=== PATIENT | female | born 1990 | race Caucasian/White ===

== ENCOUNTER 2021-07-28 14:09 | Emergency (ER) | payer MEDICAID ==
[2021-07-28] MEDS ORDERED: Sodium Chloride 0.9% 10 ML Syringe FLUSH PRN (15:42)
--- NOTE | 2021-07-28 15:57 | EDM.PDOC ---
ED HPI GENERAL MEDICAL PROBLEM - General Chief Complaint: Abdominal Pain Stated Complaint: R SIDE ABDOMINAL PAIN/VOMITING Time Seen by Provider: 07/28/21 15:40 Source of Information: Reports: Patient, RN Notes Reviewed History Limitations: Reports: No Limitations - History of Present Illness INITIAL COMMENTS - FREE TEXT/NARRATIVE: Patient is a 31-year-old female presenting to the emergency department for evaluation of sudden onset of right lower quadrant pain with radiation into her right lower back. Reports that she was at work when the symptoms began abruptly. Describes a waxing and waning of the pain. When the pain hits she states it is a "15 out of 10" and she experiences intense nausea with this as well. States upon waking this morning, she was feeling well. Denies any obvious hematuria. She has no dysuria. She has had no fever or chills. Denies any history of kidney stones. Right Abdominal Pain Score (Numeric/FACES): 8 - Related Data Allergies Allergy/AdvReac Type Severity Reaction Status Date / Time amoxicillin [Amoxicillin] Allergy Rash Verified 07/28/21 14:26 Home Meds: Home Meds Cholecalciferol (Vitamin D3) [Vitamin D3] 2,000 units PO DAILY 07/28/21 [History] Potassium Chloride 20 mg PO BID 07/28/21 [History] Venlafaxine [Venlafaxine HCl ER] 300 mg PO DAILY 07/28/21 [History] hydroCHLOROthiazide [Hydrochlorothiazide] 12.5 mg PO DAILY 07/28/21 [History] Past Medical History HEENT History: Reports: Other (See Below) Other HEENT History: glasses Cardiovascular History: Reports: Hypertension Musculoskeletal History: Reports: Other (See Below) Other Musculoskeletal History: left knee repair Psychiatric History: Reports: Anxiety Social & Family History - Tobacco Use Tobacco Use Status *Q: Never Tobacco User Second Hand Smoke Exposure: No - Caffeine Use Caffeine Use: Reports: Soda - Recreational Drug Use Recreational Drug Use: No ED ROS GENERAL - Review of Systems Review Of Systems: Comprehensive ROS is negative, except as noted in HPI. ED EXAM, GI/ABD - Physical Exam Exam: See Below Exam Limited By: No Limitations General Appearance: Alert, WD/WN, No Apparent Distress Respiratory/Chest: No Respiratory Distress, Lungs Clear, Normal Breath Sounds, No Accessory Muscle Use, Chest Non-Tender Cardiovascular: Normal Peripheral Pulses, Regular Rate, Rhythm, No Edema, No Gallop, No JVD, No Murmur, No Rub GI/Abdominal Exam: Normal Bowel Sounds, Soft, No Organomegaly, No Distention, No Abnormal Bruit, No Mass, Pelvis Stable, Tender (RLQ) Back Exam: Normal Inspection, Full Range of Motion, CVA Tenderness (R). No: CVA Tenderness (L) Neurological: Alert, Oriented, CN II-XII Intact, Normal Cognition, Normal Gait, Normal Reflexes, No Motor/Sensory Deficits Psychiatric: Normal Affect, Normal Mood Skin Exam: Warm, Dry, Intact, Normal Color, No Rash Course - Vital Signs Last Recorded V/S: Last Vital Signs Temp 99.0 F 07/28/21 14:25 Pulse 112 H 07/28/21 14:25 Resp 18 07/28/21 14:25 BP 185/102 H 07/28/21 14:25 Pulse Ox 97 07/28/21 14:25 - Orders/Labs/Meds Labs: Laboratory Tests 07/28/21 07/28/21 07/28/21 Range/Units 16:00 16:00 17:25 WBC 13.62 H (3.98-10.04) K/mm3 RBC 4.50 (3.98-5.22) M/mm3 Hgb 12.3 (11.2-15.7) gm/dl Hct 36.8 (34.1-44.9) % MCV 81.8 (79.4-94.8) fl MCH 27.3 (25.6-32.2) pg MCHC 33.4 (32.2-35.5) g/dl RDW Std Deviation 38.9 (36.4-46.3) fL Plt Count 341 (182-369) K/mm3 MPV 9.0 L (9.4-12.3) fl Neut % (Auto) 79.1 H (34.0-71.1) % Lymph % (Auto) 13.7 L (19.3-51.7) % Schley % (Auto) 5.4 (4.7-12.5) % Eos % (Auto) 1.0 (0.7-5.8) Baso % (Auto) 0.4 (0.1-1.2) % Neut # (Auto) 10.79 H (1.56-6.13) K/mm3 Lymph # (Auto) 1.86 (1.18-3.74) K/mm3 Schley # (Auto) 0.74 H (0.24-0.36) K/mm3 Eos # (Auto) 0.13 (0.04-0.36) K/mm3 Baso # (Auto) 0.05 (0.01-0.08) K/mm3 Sodium 140 (136-145) mEq/L Potassium 3.6 (3.5-5.1) mEq/L Chloride 104 (98-107) mEq/L Carbon Dioxide 26 (21-32) mEq/L Anion Gap 13.6 (5-15) BUN 12 (7-18) mg/dL Creatinine 0.6 (0.55-1.02) mg/dL Est Cr Clr Drug Dosing 118.39 mL/min Estimated GFR (MDRD) > 60 (>60) mL/min BUN/Creatinine Ratio 20.0 H (14-18) Glucose 131 H (70-99) mg/dL Calcium 9.1 (8.5-10.1) mg/dL Total Bilirubin 0.1 L (0.2-1.0) mg/dL AST 18 (15-37) U/L ALT 27 (14-59) U/L Alkaline Phosphatase 57 (46-116) U/L C-Reactive Protein 1.5 H* (<1.0) mg/dL Total Protein 7.5 (6.4-8.2) g/dl Albumin 3.6 (3.4-5.0) g/dl Globulin 3.9 gm/dL Albumin/Globulin Ratio 0.9 L (1-2) Urine Color Yellow (Yellow) Urine Appearance Clear (Clear) Urine pH 7.0 (5.0-8.0) Ur Specific Lindsay 1.025 (1.005-1.030) Urine Protein Negative (Negative) Urine Glucose (UA) Negative (Negative) Urine Ketones Negative (Negative) Urine Occult Blood 2+ H (Negative) Urine Nitrite Negative (Negative) Urine Bilirubin Negative (Negative) Urine Urobilinogen 0.2 (0.2-1.0) Ur Leukocyte Esterase Negative (Negative) Urine RBC 10-20 H (0-5) /hpf Urine WBC 0-5 (0-5) /hpf Ur Squamous Epith Cells 5-10 H (0-5) /hpf Urine Bacteria Few (FEW) /hpf Urine Mucus Few (FEW) /hpf Meds: Medications Discontinued Medications Generic Name Dose Route Start Last Admin Trade Name Marry PRN Reason Stop Dose Admin Sodium Chloride 10 ml 07/28/21 15:42 07/28/21 16:21 Sodium Chloride 0.9% 10 Ml Syringe FLUSH 10 ml ASDIRECTED PRN Administration Keep Vein Open - Re-Assessments/Exams Free Text/Narrative Re-Assessment/Exam: Patient is a 31-year-old female presenting to the emergency department with complaints of acute onset of right lower quadrant abdominal pain with radiation to her right flank. Symptoms have improved significantly. On exam, she does have right lower quadrant abdominal tenderness as well as distinct right-sided CVA tenderness. Exam is suspicious for kidney stone. I have ordered blood work, urinalysis, and CT scan of the abdomen pelvis without contrast. Patient denies the need for pain or nausea medications at this time. 07/28/21 17:42 Hematology significant for WBC elevated at 13.62, CRP 1.5. Urinalysis shows 2+ occult blood. No evidence of infection. CT scan of the abdomen and pelvis shows a 2 mm calcification within the bladder consistent with a recently passed stone. Results discussed with patient. We will discharge her home. Discussed return precautions. Discharge instructions as documented. Departure - Departure Time of Disposition: 17:42 Disposition: Home, Self-Care 01 Condition: Good Clinical Impression: Kidney stone - Discharge Information *PRESCRIPTION DRUG MONITORING PROGRAM REVIEWED*: No *COPY OF PRESCRIPTION DRUG MONITORING REPORT IN PATIENT ALMITA: No Instructions: Kidney Stones Referrals: Kathia Saavedra ENVIRONMENTAL STUDIES DEPARTMENT CHAIR [Primary Care Provider] - Forms: ED Department Discharge Additional Instructions: You were seen in the emergency department today for evaluation of right lower quadrant pain with radiation to your back. Work-up included blood work, urinalysis, and CT scan. Results of your work-up showed that you had a 2 mm kidney stone which has passed into your bladder. Your symptoms should continue to improve as the stone is no longer within your ureter. Work-up is otherwise normal. If you should experience any new or worsening symptoms of concern, please do not hesitate to return to emergency department for reevaluation.
--- NOTE | 2021-07-29 07:35 | CT ---
CT abdomen and pelvis Technique: Multiple axial sections were obtained from above the dome of the diaphragm inferiorly through the pubic symphysis. Intravenous and oral contrast were not utilized. Study has been performed as a ureteral stone protocol. Reconstructed coronal and sagittal images were obtained. Findings: Small calcification is seen within the left side of the bladder measuring approximately 2 mm in size which most likely represents a passed ureteral calculus. Left kidney shows a small calcification measuring 5 mm compatible with nonobstructing calculus. No ureteral dilatation or ureteral stone is seen. Visualized lung bases show nothing acute. Noncontrast appearance of the liver shows no focal abnormality. Spleen size is normal. Adrenal glands show no nodules. Pancreas shows no abnormality. Gallbladder is collapsed and shows no calcified gallstones. Abdominal aorta shows no aneurysm. No retroperitoneal adenopathy or mesenteric abnormalities are seen. No pelvic mass or adenopathy is seen. Appendix is seen which is normal. Bone window settings were reviewed which show bilateral spondylitic defects at L5-S1. Mild degenerative change is noted within the spine. Impression: 1. 2 mm stone within the bladder compatible with recently passed ureteral stone. 2. Nonobstructing calculus within the left kidney. 3. Other chronic findings as described above. Diagnostic code #2 I agree with preliminary report from [facility], finalized on 07/28/21, 5:40 PM CDT, code 1
== END 2021-07-28 18:15 | disposition home or self-care (01) ==
LOC: JD.ED 14:09
DX: N20.0 Calculus of kidney (principal); I10 Essential (primary) hypertension; Z88.0 Allergy status to penicillin; Z79.899 Other long term (current) drug therapy
CPT/HCPCS: 36415; 74176; 74176-26; 80053; 81001; 85025; 86140; 99284-25

== ENCOUNTER 2025-04-27 06:06 | Day surgery (SDC) | payer BC ==
[~2025-04-27 06:06] MED LIST: Sodium Chloride 0.9% 10 ML Syringe FLUSH PRN; Sodium Chloride 0.9% 10 ML Syringe FLUSH SCH; Sodium Chloride 0.9% 100 ML ONE
[2025-04-27] MEDS ORDERED: propofoL 1,000 MG/100 ML 100 ML ONE (06:43)
[2025-04-27 06:47] LABS: BASOPHILS ABSOLUTE AUTO 0.1 K/mm3 (0.0-0.2); BASOPHILS PERCENT AUTO 0.6 % (0.0-1.0); EOSINOPHILS ABSOLUTE AUTO 0.3 K/mm3 (0.0-0.4); EOSINOPHILS PERCENT AUTO 2.5 % (0.0-6.0); HEMATOCRIT 38.9 % (37.0-47.0); HEMOGLOBIN 12.8 gm/dl (12.0-16.0); IMMATURE GRAN ABSOLUTE AUTO 0.03 K/mm3 (0.00-0.05); IMMATURE GRAN PERCENT AUTO 0.3 % (0.0-0.4); LYMPHOCYTES ABSOLUTE AUTO 2.2 K/mm3 (1.0-4.8); LYMPHOCYTES PERCENT AUTO 21.2 % (24.0-44.0); MEAN CORPUSCULAR HEMOGLOBIN 26.4 pg (28.0-32.0); MEAN CORPUSCULAR HGB CONC 32.9 g/dl (32.0-36.0); MEAN CORPUSCULAR VOLUME 80.2 fl (83.0-99.0); MEAN PLATELET VOLUME 9.1 fl (9.4-12.3); MONOCYTES ABSOLUTE AUTO 0.7 K/mm3 (0.0-0.8); MONOCYTES PERCENT AUTO 6.7 % (0.0-8.0); NEUTROPHILS ABSOLUTE AUTO 7.2 K/mm3 (1.8-7.7); NEUTROPHILS PERCENT AUTO 68.7 % (41.0-71.0); PLATELET COUNT,PLT 307 K/mm3 (150-400); RED BLOOD CELL COUNT 4.85 M/mm3 (4.10-5.30)
[2025-04-27] MEDS: Gabapentin 300 MG Cap PO SCH (06:48)
[2025-04-27] MEDS: Celecoxib 100 MG Cap PO SCH (06:49)
[2025-04-27] MEDS: Acetaminophen 325 MG Tab PO SCH (06:49)
[2025-04-27] MEDS: Lactated Ringers 1,000 ML IV SCH (06:49)
[2025-04-27] MEDS: Phenazopyridine 95 MG Tab PO SCH (06:49)
[2025-04-27] MEDS ORDERED: Rocuronium 50 MG/5 ML Vial ONE (06:58)
[2025-04-27] MEDS ORDERED: EPINEPHrine 1 MG/ML SDV ONE (06:58)
[2025-04-27] MEDS ORDERED: ceFAZolin 2 GM Vial ONE (06:58)
[2025-04-27] MEDS ORDERED: fentaNYL 250 MCG/5 ML SDV ONE (06:58)
[2025-04-27] MEDS ORDERED: Dexamethasone 4 MG/ML 5 ML MDV ONE (06:58)
[2025-04-27] MEDS ORDERED: Ketamine HCL/NACL, ISO-OSM 50 MG/5 ML Syringe ONE (06:58)
[2025-04-27] MEDS ORDERED: Midazolam 1 MG/ML 2 ML SDV ONE (06:58)
[2025-04-27] MEDS ORDERED: Lidocaine 1% 5 ML VIAL ONE (06:58)
[2025-04-27] MEDS ORDERED: dexmedeTOMIDine HCl 200 MCG/2 ML SDV ONE (06:58)
[2025-04-27] MEDS ORDERED: Glycopyrrolate 0.2 MG/ML 2 ML SDV ONE (06:58)
[2025-04-27] MEDS ORDERED: Lidocaine 1% 30 ML SDV ONE (06:59)
[2025-04-27 07:01] LABS: ANION GAP 14.8 (5-15); BUN/CREATININE RATIO 14.3 (14-18); CREATININE 0.7 mg/dL (0.55-1.02); EST CRCL DRUG DOSING (CG) 101.9 mL/min; POTASSIUM,K 3.8 mEq/L (3.5-5.1)
[2025-04-27] MEDS ORDERED: HYDROmorphone 0.5 MG/0.5 ML Syringe IVPUSH PRN (07:22)
[2025-04-27] MEDS ORDERED: ePHEDrine 50 MG/ML SDV ONE (08:26)
[2025-04-27] MEDS ORDERED: Lactated Ringers 1,000 ML ONE (08:26)
[2025-04-27] MEDS ORDERED: Phenylephrine 1% 10 MG/ML SDV ONE (08:26)
[2025-04-27] MEDS ORDERED: Sugammadex Sodium 200 MG/2 ML VIAL IV ONE (09:30)
[2025-04-27] MEDS: fentaNYL 100 MCG/2 ML SDV IVPUSH PRN (10:16)
[2025-04-27] MEDS: Ondansetron 4 MG/2 ML SDV IVPUSH PRN (10:49)
[2025-04-27] MEDS: oxyCODONE 5 MG Tab PO PRN (11:20)
[2025-04-27] MEDS: Ibuprofen 800 MG Tab PO ONE (12:23)
== END 2025-04-27 13:00 | disposition home or self-care (01) ==
LOC: JD.SDS 06:06
PROVIDERS: ATTEND Obstetrics & Gynecology
DX: D25.0 Submucous leiomyoma of uterus (principal); D25.1 Intramural leiomyoma of uterus; D25.2 Subserosal leiomyoma of uterus; N83.8 Other noninflammatory disorders of ovary, fallopian tube and broad ligament; I10 Essential (primary) hypertension; F41.9 Anxiety disorder, unspecified; Z79.899 Other long term (current) drug therapy; Z88.0 Allergy status to penicillin
CPT/HCPCS: 36415; 58571; 80048; 81025; 85025; 86850; 86900; 86901; A9270; J0171; J0690; J1100; J1596; J2003; J2250; J2371; J2405; J2704; J3010; J7120; 00944; J3490